=== PATIENT | female | born 1980 | race Caucasian/White ===

== ENCOUNTER 2017-08-14 10:14 | Emergency (ER) | payer OTHER ==
[~2017-08-14] VITALS: Ht 180.3 cm; Wt 108.2 kg
[~2017-08-14 10:14] MED LIST: ANTIBIOTIC; B121000 MCG; FLUOXETINE10 MG PO
[2017-08-14] MEDS ORDERED: NEURONTIN300 MG PO (10:27)
[2017-08-14] MEDS ORDERED: AMITRIPTYLIN50 MG PO (10:28)
[2017-08-14] MEDS ORDERED: FLUOXETINE HCL40 MG PO (10:28)
[2017-08-14] MEDS ORDERED: CYCLOBENZAPR10 MG PO (10:29)
[2017-08-14] MEDS ORDERED: KENALOG15 GM/TUBE EX (10:29)
[2017-08-14] MEDS ORDERED: TORADOL PO (12:06)
[2017-08-14 12:10] VITALS: BP 126/82
== END 2017-08-14 12:10 | disposition home or self-care (01) | DRG 605 ==
LOC: ED 10:14
DX: S90.31XA Contusion of right foot, initial encounter (principal); S30.0XXA Contusion of lower back and pelvis, initial encounter; G62.9 Polyneuropathy, unspecified; F17.290 Nicotine dependence, other tobacco product, uncomplicated; W19.XXXA Unspecified fall, initial encounter; W20.8XXA Other cause of strike by thrown, projected or falling object, initial encounter

== ENCOUNTER 2018-09-07 13:23 | Emergency (ER) | payer OTHER ==
[~2018-09-07] VITALS: Ht 180.3 cm; Wt 117.0 kg
[~2018-09-07 13:23] MED LIST changes: +AMITRIPTYLIN50 MG PO; +CYCLOBENZAPR10 MG PO; +FLUOXETINE HCL40 MG PO; +KENALOG15 GM/TUBE EX; +NEURONTIN300 MG PO; +TOPAMAX100 M1; +TORADOL PO
[2018-09-07 14:33] VITALS: BP 113/70
[2018-09-07] MEDS ORDERED: ULTRAM50 M1 PO (14:37)
== END 2018-09-07 14:48 | disposition home or self-care (01) | DRG 914 ==
LOC: ED 13:23
DX: T14.8XXA Other injury of unspecified body region, initial encounter (principal); G62.9 Polyneuropathy, unspecified; M06.9 Rheumatoid arthritis, unspecified; V43.03XA Car driver injured in collision with pick-up truck in nontraffic accident, initial encounter; Y93.89 Activity, other specified; Y92.524 Gas station as the place of occurrence of the external cause

== ENCOUNTER 2019-02-23 17:34 | Emergency (ER) | payer OTHER ==
[~2019-02-23] VITALS: Ht 180.3 cm; Wt 111.3 kg
[~2019-02-23 17:34] MED LIST changes: +ULTRAM50 M1 PO
[2019-02-23 18:35] LABS: HEMATOCRIT 39.7 % (37.0-47.0); HEMOGLOBIN 12.8 g/dl (12.0-16.0); IMMATURE GRANULOCYTES 0.7 % (0.0-5.0); MEAN CELL VOLUME 94.3 fL CALC (80.0-100.0); MEAN CORPUSCULAR HGB 30.4 pG CALC (26.0-32.0); MEAN CORPUSCULAR HGB CONC 32.2 g/L CALC (32.0-36.0); NEUT# 3.34 thou/uL (2.00-7.15); RED BLOOD COUNT 4.21 mill/uL (4.20-5.60); RED CELL DISTRI WIDTH 15.5 % (11.5-15.5)
[2019-02-23 19:04] LABS: ALBUMIN 4.3 g/dL (3.2-5.0); ALKALINE PHOSPHATASE 71 u/l (38-126); ANION GAP 16 (6-22 (CALC)); BILIRUBIN, TOTAL 0.4 mg/dL (0.0-1.4); BUN 7 mg/dL (7-17); BUN/CREATININE RATIO 8 (12-20 (CALC)); CARBON DIOXIDE 19 mmol/l (22-30); CHLORIDE 109 mmol/l (95-108); CREATININE 0.8 mg/dL (0.5-1.0); GFR > 60 ML/MIN (>=60 (CALC)); GFR FOR AFR.AMER. > 60 ML/MIN (>=60 (CALC)); LIPASE 77 u/l (23-300); SGOT/AST 26 u/l (14-36); SODIUM 139 mmol/l (137-146); TOTAL PROTEIN 7.9 g/dL (6.3-8.2)
[2019-02-23 21:09] LABS: URINE BILIRUBIN - DIPSTICK NEGATIVE (NEGATIVE); URINE BLOOD DIPSTICK NEGATIVE (NEGATIVE); URINE COLOR YELLOW; URINE GLUCOSE - DIPSTICK NEGATIVE (NEGATIVE); URINE KETONE 15 mg/dL (NEGATIVE); URINE LEUK ESTERASE NEGATIVE (NEGATIVE); URINE NITRITE - DIPSTICK NEGATIVE (Negative); URINE PROTEIN - DIPSTICK NEGATIVE (NEG-TRACE); URINE SPECIFIC GRAVITY <=1.005; URINE UROBILINOGEN - DIPSTICK 0.2 E.U./dL (0.2)
[2019-02-23 21:48] VITALS: BP 121/65
== END 2019-02-23 21:51 | disposition home or self-care (01) ==
LOC: ED 17:34
PROVIDERS: Family Medicine
DX: R07.9 Chest pain, unspecified (principal); R06.02 Shortness of breath; R10.84 Generalized abdominal pain; F17.210 Nicotine dependence, cigarettes, uncomplicated
CPT/HCPCS: Q9967